=== PATIENT | female | born 1990 | race Caucasian/White ===

== ENCOUNTER 2018-11-08 03:35 | Emergency (ER) | payer MEDICAID, OTHER ==
[~2018-11-08] VITALS: Ht 175.3 cm; Wt 104.0 kg
[~2018-11-08 03:35] MED LIST: DENIES
[2018-11-08 03:38] VITALS: Ht 175.3 cm; Wt 104.0 kg
[2018-11-08] MEDS ORDERED: SOD CHLORIDE 0.9% 1,000 ML IV STA (04:01)
[2018-11-08] MEDS ORDERED: ONDANSETRON 4 MG INJ IV STA (04:01)
[2018-11-08] MEDS ORDERED: FAMOTIDINE 20 MG INJ IV STA (04:01)
--- NOTE | 2018-11-08 04:09 | ERD ---
ER Documentation Chief Complaint Chief Complaint vomiting x 2 hours HPI This is a 28-year-old female presents ED with nausea and vomiting times 2 hours. Patient admits to having multiple episodes of nonbilious nonbloody vomiting. P atient also admits to some abdominal cramping associated with nausea vomiting. Patient also admits to diarrhea. Denies fever, chills, hemoptysis, melena, hematochezia, hematemesis, cough, congestion, runny nose mouth or symptoms. No sick contact or recent travel. ROS All systems reviewed and are negative except as per history of present illness. Medications Home Meds Active Scripts Dicyclomine HCl (Dicyclomine HCl) 10 Mg Capsule, 10 MG PO TID PRN for ABDOMINAL CRAMPING, #20 CAP Prov:CINTHIA SMALL PA-C 11/08/18 Ondansetron (Ondansetron Odt) 4 Mg Tab.rapdis, 4 MG PO Q6H PRN for NAUSEA AND/OR VOMITING, #10 TAB Prov:CINTHIA SMALL PA-C 11/08/18 Reported Medications [Denies] No Conflict Check 11/02/09 Allergies Allergies: Coded Allergies: No Known Drug Allergy (Verified Allergy, Mild, 11/08/18) PMhx/Soc History of Surgery: No Hx Neurological Disorder: No Hx Respiratory Disorders: No Hx Cardiac Disorders: No Hx Psychiatric Problems: No Hx Miscellaneous Medical Probl: No Hx Alcohol Use: Yes (ETOH + IN TRIAGE, VOMITING, HAS BEEN DRINKING BEER AND HAD ONE SHOT TEQUILI) Hx Substance Use: No Hx Tobacco Use: No Smoking Status: Never smoker FmHx Family History: No diabetes Physical Exam Vitals Vital Signs Date Temp Pulse Resp B/P (MAP) Pulse Ox O2 O2 Flow FiO2 Time Delivery Rate 11/08/18 98.6 82 16 127/72 99 03:38 (90) Physical Exam Physical Exam Vitals signs: Reviewed by me. General: Well developed, well nourished, in no acute distress. Patient is awake and alert. Head: Normocephalic, atraumatic. Eyes: Normal conjunctiva, Pupils PERRLA, EOM intact grossly ENT: Pharynx is clear, Moist mucous membranes, external ears, nose and mouth normal Neck: Supple, no masses, lymphadenopathy or JVD Respiratory: Clear to auscultation bilaterally with no wheezing, rhonchi, rales, no distress Cardiovascular: RRR, no murmurs, rubs, or gallops Abdominal: Soft, nondistended, no peritoneal signs, no rigidity, no surgical abdomen, bowel sounds present all 4 quadrants, nontender light deep palpation all 4 quadrants, Lebron sign negative, McBurney's point nontender, no rebound tenderness Back: No midline tenderness. No flank tenderness Neurologic: Alert and oriented, moving all extremities, normal speech, no focal weakness, no cerebellar signs. Normal mentation Skin: warm and dry, No rash Psych: Normal mood Result Diagram: 11/08/183 11/08/18412 Results 24 hrs Laboratory Tests Test 11/08/18 04:13 White Blood Count 13.7 10^3/ul Red Blood Count 4.83 10^6/ul Hemoglobin 14.5 g/dl Hematocrit 42.3 % Mean Corpuscular Volume 87.6 fl Mean Corpuscular Hemoglobin 30.0 pg Mean Corpuscular Hemoglobin Concent 34.3 g/dl Red Cell Distribution Width 13.2 % Platelet Count 250 10^3/UL Mean Platelet Volume 9.6 fl Immature Granulocytes % 0.800 % Neutrophils % 83.1 % Lymphocytes % 9.4 % Monocytes % 6.1 % Eosinophils % 0.4 % Basophils % 0.2 % Nucleated Red Blood Cells % 0.0 /100WBC Immature Granulocytes # 0.110 10^3/ul Neutrophils # 11.4 10^3/ul Lymphocytes # 1.3 10^3/ul Monocytes # 0.8 10^3/ul Eosinophils # 0.1 10^3/ul Basophils # 0.0 10^3/ul Nucleated Red Blood Cells # 0.0 10^3/ul Urine Color YELLOW Urine Clarity SLIGHTLY CLOUDY Urine pH 5.0 Urine Specific [place] 1.028 Urine Ketones NEGATIVE mg/dL Urine Nitrite NEGATIVE mg/dL Urine Bilirubin NEGATIVE mg/dL Urine Urobilinogen NEGATIVE mg/dL Urine Leukocyte Esterase TRACE Randy/ul Urine Microscopic RBC 12 /HPF Urine Microscopic WBC 5 /HPF Urine Squamous Epithelial Cells FEW /HPF Urine Bacteria FEW /HPF Urine Mucus MODERATE /HPF Urine Hemoglobin 2+ mg/dL Urine Glucose NEGATIVE mg/dL Urine Total Protein 1+ mg/dl Urine Test NEGATIVE Sodium Level 141 mmol/L Potassium Level 4.5 mmol/L Chloride Level 106 mmol/L Carbon Dioxide Level 22 mmol/L Anion Gap 13 Blood Urea Nitrogen 12 mg/dl Creatinine 0.50 mg/dl Est Glomerular Filtrat Rate mL/min > 60 mL/min Glucose Level 121 mg/dl Calcium Level 9.9 mg/dl Total Bilirubin 0.2 mg/dl Direct Bilirubin 0.00 mg/dl Indirect Bilirubin 0.2 mg/dl Aspartate Amino Transf (AST/SGOT) 34 IU/L Alanine Aminotransferase (ALT/SGPT) 17 IU/L Alkaline Phosphatase 86 IU/L Total Protein 8.7 g/dl Albumin 4.8 g/dl Globulin 3.90 g/dl Albumin/Globulin Ratio 1.23 Lipase 49 U/L Current Medications Medications Dose Sig/Barb Start Time Status Last (Trade) Ordered Route PRN Stop Time Admin Dose Reason Admin Sodium 1,000 ml @ Q1H STAT 11/08/18 DC 11/08/18 Chloride 1,000 mls/hr IV 04:01 04:16 11/08/18 05:00 Ondansetron 4 mg ONCE STAT 11/08/18 DC 11/08/18 HCl (Zofran IV 04:01 04:15 Inj) 11/08/18 04:04 Famotidine 20 mg ONCE STAT 11/08/18 DC 11/08/18 (Pepcid Iv) IV 04:01 04:38 11/08/18 04:04 Procedures/MDM LAB INTERPRETATION: CBC markable for a WBC of 13.7, increased neutrophil percentage of 83.1, no evidence of hemorrhage Chemistry shows no evidence of significant electrolyte abnormalities or renal insufficiency Liver function test shows no evidence of acute biliary or hepatic dysfunction Lipase shows no evidence of acute pancreatitis Urinalysis remarkable for few bacteria, 5 WBCs, 12 RBCs, trace esterase ER COURSE: The patient was given IV fluids, Zofran, Pepcid, GI cocktail The medication was well tolerated and the patient reports improvement in symptoms. The patient was stable throughout ED course. I kept the patient and/or family informed of laboratory and diagnostic imaging results throughout the emergency room course. The patient was promptly evaluated and a treatment plan was devised based on H&P and other data. This plan was discussed with the patient who agreed and had no further questions or concerns prior to discharge. MEDICAL DECISION MAKING: This is a 28-year-old female presents ED with complaints of nausea vomiting and diarrhea times 2 hours prior to arrival in the ED. This is likely a gastroenteritis. Patient is resting peacefully in room and has moist mucous membranes and good skin turgor. Patient was given Zofran, Pepcid and IV normal saline emergency department reports resolution of symptoms. Patient's abdomen is nontender to palpation during Examination and at discharge so i doubt gastro intestinal emergency. History and physical examination other data not consistent with emergent processes including but not limited to sepsis, pancreatitis, cholecystitis, appendicitis, small bowel obstruction, perforated viscus, among others. Patient's vitals are stable she can be managed with close outpatient follow-up. Advised patient to follow-up with primary care in 48 hours. Return to ED with any worsening symptoms DISPOSITION PLAN: We discussed follow up with the patient's primary care doctor within 24 to 48 hours. Patient counseled regarding my diagnostic impression and care plan. Prior to discharge all questions answered. Pt agrees with treatment plan and understands strict return precautions. Precautionary instructions provided including instructions to return to the ER if not improving or for any worsening or changing symptoms or concerns. SPECIALIST FOLLOW UP RECOMMENDED: None Patient has been advised to follow up with primary care in 1-2 days. Disclaimer: Inadvertent spelling and grammatical errors are likely due to EHR/dictation software use and do not reflect on the overall quality of patient care. Also, please note that the electronic time recorded on this note does not necessarily reflect the actual time of the patient encounter. Blood Pressure Assessment: Patient's blood pressure was elevated (>120/80) but appears stable without evidence of hypertension emergency or urgency. The patient was counseled about the risks of hypertension and urged to pursue outpatient monitoring and therapy within a week with their primary care physician. Departure Diagnosis: Primary Impression: Nausea, vomiting, and diarrhea Condition: Stable Patient Instructions: Nausea and Vomiting-Adult, Self-Care for Vomiting and Diarrhea, Treating Diarrhea Referrals: [facility] Additional Instructions: Patient advised to return to the ED immediately for new or worsening symptoms. Patient advised to follow up with primary care provider in the next 24-48 hours. Patient verbalized understanding and agrees with treatment plan and course of action. If patient has no primary care they may follow up with one of the community clinics listed on the following page or one of the options listed below [facility] + [address] [address] or [place] [id number] [place] [id number] [address] [place] [address] CINTHIA SMALL PA-C Nov 08, 2018 04:09
[2018-11-08] MEDS ORDERED: DICY10CA40 PO (04:36)
[2018-11-08] MEDS ORDERED: ONDA4TAB14 PO (04:36)
[2018-11-08 06:06] VITALS: BP 127/78; PULSE 72; RESP 18
== END 2018-11-08 06:22 | disposition home or self-care (01) ==
LOC: FTE 03:35
DX: R11.2 Nausea with vomiting, unspecified (principal); R19.7 Diarrhea, unspecified
CPT/HCPCS: 80053; 81001; 83690; 84703; 85025; 96374; 96375; J2405; J7030; Z7502; Z7610